=== PATIENT | male | born 1985 | race Caucasian/White ===

== ENCOUNTER 2018-07-01 08:05 | Emergency (ER) | payer SELFPAY ==
[2018-07-01] MEDS ORDERED: DECADRON IV ONE (11:00)
[2018-07-01] MEDS ORDERED: SUBLIMAZE IV ONE ×2 (11:00→12:24)
[2018-07-01] MEDS ORDERED: NACL 0.9% 500 ML 500 ML IV ONE (11:00)
--- NOTE | 2018-07-01 11:01 | Emergency Department Report ---
ED General Adult HPI - General Chief complaint: Sore Throat Stated complaint: NECK PAIN Time Seen by Provider: 07/01/18 10:46 Source: patient, RN notes reviewed Mode of arrival: Ambulatory Limitations: No Limitations - History of Present Illness Initial comments: This is a 33-year-old gentleman who is not known to this provider previously, who presents to the ER with a complaint of nontraumatic right submandibular and right lateral neck pain and swelling over the past 2 days. This hasn't happened in the past, his symptoms are constant, they do not radiate anywhere, they worsen with palpation and they decrease with rest. He denies headache, posterior neck pain, chest pain, abdominal pain, shortness of breath, extremity weakness, numbness, urinary symptoms. He denies dental pain. He endorses discomfort with swallowing. -: Gradual Location: neck Radiation: non-radiation Quality: aching Consistency: constant Improves with: rest Worsens with: movement Associated Symptoms: loss of appetite. denies: confusion, chest pain, cough, diaphoresis, fever/chills, headaches, malaise, nausea/vomiting, rash, seizure, shortness of breath, syncope, weakness - Related Data Previous Rx's Medication Instructions Recorded Last Taken Type Methadone [Dolophine] 10 mg PO Q12H #50 tablet 08/03/15 08/17/15 05:00 Rx Fenofibrate [Tricor] 145 mg PO QDAY #30 tablet 08/19/15 Unknown Rx Omeprazole [PriLOSEC] 40 mg PO QDAY #30 cap 08/19/15 Unknown Rx Oxycodone HCl [oxyCODONE TAB] 10 mg PO Q6H PRN #30 tablet 08/19/15 Unknown Rx Acetaminophen [Tylenol Arthritis] 650 mg PO Q6HR PRN #30 tablet.er 07/01/18 Unknown Rx Ibuprofen [Motrin] 600 mg PO Q8H PRN #30 tablet 07/01/18 Unknown Rx oxyCODONE [Roxicodone] 5 mg PO Q6HR PRN #15 tablet 07/01/18 Unknown Rx Allergies Allergy/AdvReac Type Severity Reaction Status Date / Time No Known Allergies Allergy Verified 07/01/18 08:13 ED Review of Systems ROS: Stated complaint: NECK PAIN Other details as noted in HPI Comment: All other systems reviewed and negative ED Past Medical Hx - Past Medical History Additional medical history: Pancreatitis. HIGH CHOLESTEROL. CHRONIC PAIN - Surgical History Past Surgical History?: No - Social History Smoking Status: Never Smoker Substance Use Type: None - Medications Home Medications: Home Medications Medication Instructions Recorded Confirmed Last Taken Type Methadone [Dolophine] 10 mg PO Q12H #50 tablet 08/03/15 08/17/15 08/17/15 05:00 Rx Fenofibrate [Tricor] 145 mg PO QDAY #30 tablet 08/19/15 Unknown Rx Omeprazole [PriLOSEC] 40 mg PO QDAY #30 cap 08/19/15 Unknown Rx Oxycodone HCl [oxyCODONE TAB] 10 mg PO Q6H PRN #30 tablet 08/19/15 Unknown Rx Acetaminophen [Tylenol Arthritis] 650 mg PO Q6HR PRN #30 tablet.er 07/01/18 Unknown Rx Ibuprofen [Motrin] 600 mg PO Q8H PRN #30 tablet 07/01/18 Unknown Rx oxyCODONE [Roxicodone] 5 mg PO Q6HR PRN #15 tablet 07/01/18 Unknown Rx ED Physical Exam - General Limitations: No Limitations General appearance: alert, other (patient appears uncomfortable.) - Head Head exam: Present: atraumatic, normocephalic - Eye Eye exam: Present: normal appearance, PERRL, EOMI, other (visual acuity intact to finger counting, color perception, reading at a close distance). Absent: nystagmus - ENT ENT exam: Present: normal exam, normal orophraynx, mucous membranes moist, TM's normal bilaterally, normal external ear exam, other (there is no sublingual tenderness. There is no dental or gingival tenderness) - Neck Neck exam: Present: tenderness, full ROM, lymphadenopathy, other (there is no stridor. There is no swelling underneath the base of the tongue. There is a tender well-circumscribed lesion/mass on the inferior/lateral aspect of the submandibular region. There is no redness, pus or streaking). Absent: meningismus, thyromegaly - Respiratory Respiratory exam: Present: normal lung sounds bilaterally. Absent: respiratory distress, wheezes, rales, rhonchi, stridor, chest wall tenderness, accessory muscle use, decreased breath sounds, prolonged expiratory - Cardiovascular Cardiovascular Exam: Present: regular rate, normal rhythm, normal heart sounds. Absent: bradycardia, tachycardia, irregular rhythm, systolic murmur, diastolic murmur, rubs, gallop - GI/Abdominal GI/Abdominal exam: Present: soft. Absent: distended, tenderness, guarding, rebound, rigid, pulsatile mass - Rectal Rectal exam: Present: deferred - Extremities Exam Extremities exam: Present: normal inspection, full ROM. Absent: tenderness, joint swelling - Back Exam Back exam: Present: normal inspection, full ROM. Absent: tenderness, CVA tenderness (R), paraspinal tenderness, vertebral tenderness - Neurological Exam Neurological exam: Present: alert, oriented X3, CN II-XII intact, normal gait, other (Extraocular movements intact. Tongue midline. No facial droop. Facial sensation intact to light touch in the V1, V2, V3 distribution bilaterally. 5 and 5 strength in 4 extremities.. Sensation is intact to light touch in 4 extremities.). Absent: motor sensory deficit - Psychiatric Psychiatric exam: Present: anxious - Skin Skin exam: Present: warm, dry, intact, normal color. Absent: rash ED Course Vital Signs 07/01/18 08:13 Temperature 99.1 F Pulse Rate 91 H Respiratory 18 Rate Blood Pressure 135/95 O2 Sat by Pulse 97 Oximetry - Reevaluation(s) Reevaluation #1: 07/01/18 14:13 CT scan of the neck shows no obvious infection, but it does demonstrate the right submandibular duct is dilated without evidence of abscess or infection. Based on the exam and physical, I do not suspect bacterial superinfection at this time. Patient will be discharged with appropriate pain medication, he will be given a printout on how to perform submandibular gland massage, he is instructed to apply warm compresses and start using sialagogues as often as possible, and he will be referred to outpatient otolaryngology for follow-up. He is tolerating oral liquids at this time, and his protecting his airway at this time. ED Medical Decision Making - Lab Data Result diagrams: 07/01/18 11:17 07/01/18 11:17 Vital Signs 07/01/18 08:13 Temperature 99.1 F Pulse Rate 91 H Respiratory 18 Rate Blood Pressure 135/95 O2 Sat by Pulse 97 Oximetry Lab Results 07/01/18 07/01/18 Range/Units 11:17 11:17 WBC 12.2 H (4.5-11.0) K/mm3 RBC 5.42 H (3.65-5.03) M/mm3 Hgb 15.7 H (11.8-15.2) gm/dl Hct 45.8 H (35.5-45.6) % MCV 85 (84-94) fl MCH 29 (28-32) pg MCHC 34 (32-34) % RDW 13.2 (13.2-15.2) % Plt Count 122 L (140-440) K/mm3 Sodium 138 (137-145) mmol/L Potassium 4.5 (3.6-5.0) mmol/L Chloride 97.5 L (98-107) mmol/L Carbon Dioxide 25 (22-30) mmol/L Anion Gap 20 mmol/L BUN 10 (9-20) mg/dL Creatinine 0.7 L (0.8-1.5) mg/dL Estimated GFR > 60 ml/min BUN/Creatinine Ratio 14 % Glucose 114 H (75-100) mg/dL Calcium 9.5 (8.4-10.2) mg/dL - Radiology Data Radiology results: report reviewed - Medical Decision Making Differential diagnosis, including but not limited to: Deep space neck infection, lymphadenopathy, , odontogenic infection, lymphoma Assessment and plan: 33-year-old gentleman with painful submandibular right sided neck mass which has developed over the past 2 days. He is afebrile with reassuring vital signs without stridor and his protecting his airway. His pain is treated, and a CT scan of the neck has been performed and interpretation is pending at this time. Critical care attestation.: If time is entered above; I have spent that time in minutes in the direct care of this critically ill patient, excluding procedure time. ED Disposition Clinical Impression: Sialolithiasis of submandibular gland Disposition: DC-01 TO HOME OR SELFCARE Is pt being admited?: No Does the pt Need Aspirin: No Condition: Stable Instructions: Sialoadenitis (ED) Additional Instructions: Apply warm compresses to the affected area as often as as needed. Use hard sucking candy, preferably lemon, as often as is possible. Apply submandibular gland massage as directed in the print out that the patient is given. Take the pain medications as needed/directed. Follow-up with your primary care doctor or otolaryngology specialist within the next 5-7 days. Return to the ER right away with new pain, worsening pain, migration of pain, projectile vomiting, change in mental status, confusion, inability to speak, and inability to breathe. Prescriptions: Acetaminophen [Tylenol Arthritis] 650 mg PO Q6HR PRN #30 tablet.er PRN Reason: Pain Ibuprofen [Motrin] 600 mg PO Q8H PRN #30 tablet PRN Reason: Pain oxyCODONE [Roxicodone] 5 mg PO Q6HR PRN #15 tablet PRN Reason: Pain Referrals: PRIMARY CARE, [Primary Care Provider] - 3-5 Days JARETT PETE MD [Staff Physician] - 3-5 Days
[2018-07-01 11:35] LABS: Hematocrit 45.8 % (35.5-45.6); Hemoglobin 15.7 gm/dl (11.8-15.2); Mean Corpuscular HGB Conc 34 % (32-34); Mean Corpuscular Hemoglobin 29 pg (28-32); Mean Corpuscular Volume 85 fl (84-94); Platelet Count 122 K/mm3 (140-440); Red Blood Count 5.42 M/mm3 (3.65-5.03); Red Cell Distribution Width 13.2 % (13.2-15.2)
[2018-07-01 13:13] LABS: BUN/Creatinine Ratio 14; Blood Urea Nitrogen 10 mg/dL (9-20); Calcium 9.5 mg/dL (8.4-10.2); Hemolysis Index 10
--- NOTE | 2018-07-01 14:05 | Cat Scan Report ---
CT NECK WITH CONTRAST: HISTORY: Right sided neck pain. TECHNIQUE: Helical CT following IV contrast. Sagittal and coronal reformatted images. FINDINGS: The right submandibular duct is mildly enlarged with diffuse enhancement. The right submandibular duct is dilated. A distal right submandibular duct stone is identified measuring 8 mm on image 54, series 3. The left submandibular gland and parotid glands are unremarkable. The remaining soft tissue structures of the neck are within normal limits. There are a few borderline right jugular and right submental lymph nodes which are probably reactive in nature. No bulky adenopathy. The bony structures are intact with no evidence of fracture, malalignment or bone lesion. No degenerative changes. The vascular structures are widely patent. The lung apices are clear IMPRESSION: Sialolithiasis as described.
[2018-07-01] MEDS ORDERED: TORADOL IV ONE (14:09)
[2018-07-01 14:34] VITALS: BP 131/84
== END 2018-07-01 14:33 | disposition home or self-care (01) ==
LOC: ED 08:05
DX: K11.5 Sialolithiasis (principal); M54.2 Cervicalgia; K85.90 Acute pancreatitis without necrosis or infection, unspecified; E78.00 Pure hypercholesterolemia, unspecified
CPT/HCPCS: 36415; 70491; 80048; 85027; 96374; 96375; 96376; 99284; J1100; J1885; J3010; J7040; Q9967